=== PATIENT | male | born 1985 | race Asian ===

== ENCOUNTER 2016-07-08 21:57 | Emergency (ER) | payer OTHER ==
[~2016-07-08] VITALS: Ht 180.3 cm; Wt 77.1 kg
[2016-07-08 23:06] VITALS: BP 131/79
[2016-07-08 23:07] VITALS: BP 156/90
--- NOTE | 2016-07-09 02:58 | Emergency Room Report ---
History of Present Illness General Chief Complaint: Medical Clearance Source: Patient, EMS Present Illness HPI Patient presents with [employer] for medical clearance after being picked up by police Patient had told him that he had swallowed a dime bag Denies any headache he felt some palpitations denies any nausea vomiting denies any diarrhea Denies any other complaints at this time The ingestion occurred about an hour before arrival Allergies: Coded Allergies: No Known Allergies (Unverified , 07/08/16) Patient History Past Medical History: see triage record Pertinent Family History: none Reviewed Nursing Documentation: PMH: Agreed, PSxH: Agreed Nursing Documentation-PMH Past Medical History: No Stated History Review of Systems All Other Systems: negative except mentioned in HPI Physical Exam Vital Signs Date Time Temp Pulse Resp B/P Pulse Ox O2 Delivery O2 Flow Rate FiO2 07/08/16 21:57 99.1 111 20 156/90 99 Room Air Sp02 EP Interpretation: reviewed, normal General Appearance: no apparent distress - However appears mildly disheveled Head: normocephalic, atraumatic Eyes: bilateral eye EOMI, bilateral eye PERRL ENT: normal pharynx, no angioedema Neck: supple, thyroid normal Respiratory: chest non-tender, lungs clear, normal breath sounds Cardiovascular #1: normal peripheral pulses, regular rate, rhythm, no edema Gastrointestinal: non tender, soft, no mass Musculoskeletal: normal inspection Neurologic: alert, oriented x3 Skin: normal color, no rash Medical Decision Making Diagnostic Impression: Primary Impression: possible injestion Additional Impression: medical screening for booking ER Course The patient remains hemodynamically stable Is awake alert KUB was obtained for any obvious bowel perforation or other acute pathology this was negative at this time And the patient stable for close outpatient followup with arron Lucio in the morning Other X-Ray Diagnostic Results Other X-Ray Diagnostic Results : EP Interpretation: Yes Findings: no dislocation, no soft tissue swelling, other - No obvious foreign body, no free air Number of Views: 1 - KUB Last Vital Signs Date Time Temp Pulse Resp B/P Pulse Ox O2 Delivery O2 Flow Rate FiO2 07/08/16 23:07 99.1 20 156/90 99 Room Air 07/08/16 23:06 98 Status: improved Disposition: D/C TO LAW ENFORCEMENT IN [facility] Condition: Stable Departure Forms: [employer] Clearance Patient Instructions: Stimulant Use Disorder-Cocaine Additional Instructions: At this time there are no signs of any emergency pathology or finding, however followup with arron Lucio as warranted with serial examinations, KEYLA CHAWLA D.O. Jul 09, 2016 02:58
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
== END 2016-07-08 23:09 ==
LOC: EDBD 21:57 → EMR 22:30
DX: Z02.89 Encounter for other administrative examinations (principal); F14.10 Cocaine abuse, uncomplicated
CPT/HCPCS: 74000; 99283